=== PATIENT | male | born 1965 | race Caucasian/White ===

== ENCOUNTER 2019-12-03 07:25 | Outpatient (CLI) | payer OTHER, SELFPAY ==
--- NOTE | ~2019-12-03 | MR_ITS ---
EXAMINATION: MR abdomen wo/w con INDICATION: History of neuroendocrine carcinoma TECHNIQUE: Coronal SSFSE ARC, WATER:coronal LAVA-FLEX, Coronal 2D FIESTA FatSat, Axial SSFSE BH ARC, Axial 3D DualEcho BH, Axial SSFSE-IR, Axial DWI b=500, Axial 2D FIESTA FatSat, pre and dynamic postco ntrast Axial LAVA ARC, postcontrast Coronal In and Opposed phase LAVA FLEX COMPARISON: 04/06/1918, 01/16/2019, 05/30/2017 CONTRAST: Multihance, 20 cc FINDINGS: Again seen is a stable, subtle 8 mm lesion in liver segment VIII which is mildly T1 hypoint ense and mildly T2 hyperintense. No definite abnormal enhancement is seen on this examination. No new liver lesion is identified. The spleen, pancreas, and adrenal glands are normal. A stone is present in the nondistended gallbladder. There are no pathologically enlarged abdominal lymph nodes. There is a stable hemorrhagic or proteinaceous cyst of the left mid kidney. The right kidney is unremarkable. There are no dilated loops of bowel. Again noted are changes of right hemicolectomy. IMPRESSION: 1. Changes of right hemicolectomy without evidence of residual or recurrent disease. 2. Stable subtle lesion of the right hepatic lobe, most consistent with a benign finding given interv al stability. 3. Cholelithiasis without evidence of cholecystitis. Reviewed, dictated and finalized at location A. IMPRESSION: 1. Changes of right hemicolectomy without evidence of residual or recurrent dis ease. 2. Stable subtle lesion of the right hepatic lobe, most consistent with a benig n finding given interval stability. 3. Cholelithiasis without evidence of cholecystitis.
[2019-12-03 08:50] LABS: Estimated Glomerular Filt Rate > 60
== END 2019-12-03 07:26 | disposition home or self-care (01) ==
LOC: ANHIMG 07:28
PROVIDERS: PCP Emergency Medicine; Visit Provider Internal Medicine Medical Oncology
DX: C7A.8 Other malignant neuroendocrine tumors (principal); K76.9 Liver disease, unspecified; K80.20 Calculus of gallbladder without cholecystitis without obstruction; Z90.49 Acquired absence of other specified parts of digestive tract
CPT/HCPCS: 36415; 74183; A9577

== ENCOUNTER 2020-04-13 06:56 | Outpatient (CLI) | payer OTHER, SELFPAY ==
[2020-04-13 08:31] LABS: Alanine Aminotransferase 28 U/L (4-50); Albumin Level 4.6 g/dL (3.5-5.1); Alkaline Phosphatase 74 U/L (38-126); Anion Gap 13.2 mmol/L (7-16); Aspartate Amino Transferase 25 U/L (17-59); Bilirubin,Total 0.5 mg/dL (0.2-1.3); Blood Urea Nitrogen 11 mg/dL (9-20); Calcium 9.5 mg/dL (8.4-10.2); Carbon Dioxide 26 mmol/L (22-30); Chloride 103 mmol/L (98-107); Cholesterol 233 mg/dL (0-200); Estimated Glomerular Filt Rate > 60; Glucose 102 mg/dL (75-110); HDL Direct 42 mg/dL; Potassium 4.2 mmol/L (3.4-5.0); Sodium 138 mmol/L (137-145); Triglycerides 172 mg/dL (<150)
[2020-04-13 08:42] LABS: LDL Cholesterol Direct 146 mg/dL
[2020-04-13 14:28] LABS: Hemoglobin A1C 5.6 % (<5.7)
[2020-04-13 14:54] LABS: Prostate Specific Antigen 0.7 ng/mL (< OR = 4.0)
== END 2020-04-13 06:57 | disposition home or self-care (01) ==
PROVIDERS: PCP Emergency Medicine; Visit Provider Emergency Medicine
DX: E78.5 Hyperlipidemia, unspecified (principal); E11.9 Type 2 diabetes mellitus without complications; Z12.5 Encounter for screening for malignant neoplasm of prostate
CPT/HCPCS: 36415; 80053; 80061; 83036; 84153

== ENCOUNTER 2020-10-09 06:44 | Outpatient (CLI) | payer OTHER, SELFPAY ==
[2020-10-09 07:37] LABS: Alanine Aminotransferase 33 U/L (4-50); Albumin Level 4.2 g/dL (3.5-5.1); Alkaline Phosphatase 70 U/L (38-126); Anion Gap 4 mmol/L (8-16); Aspartate Amino Transferase 28 U/L (17-59); Bilirubin,Total 0.6 mg/dL (0.2-1.3); Blood Urea Nitrogen 14 mg/dL (9-20); Calcium 9.2 mg/dL (8.4-10.2); Carbon Dioxide 30 mmol/L (22-30); Chloride 105 mmol/L (98-107); Cholesterol 242 mg/dL (0-200); Estimated Glomerular Filt Rate > 60; Glucose 113 mg/dL (75-110); HDL Direct 40 mg/dL; Potassium 4.1 mmol/L (3.4-5.0); Sodium 139 mmol/L (137-145); Triglycerides 213 mg/dL (<150)
[2020-10-09 07:48] LABS: LDL Cholesterol Direct 159 mg/dL
[2020-10-09 08:00] LABS: Hemoglobin A1C 5.7 % (<5.7)
[2020-10-09 08:05] LABS: Prostate Specific Antigen 0.8 ng/mL (< OR = 4.0)
== END 2020-10-09 06:45 | disposition home or self-care (01) ==
PROVIDERS: PCP Emergency Medicine; Visit Provider Emergency Medicine
DX: E78.5 Hyperlipidemia, unspecified (principal); Z12.5 Encounter for screening for malignant neoplasm of prostate; E11.9 Type 2 diabetes mellitus without complications
CPT/HCPCS: 36415; 80053; 80061; 83036; 84153; G0103

== ENCOUNTER 2020-10-23 07:02 | Outpatient (CLI) | payer OTHER, SELFPAY ==
[2020-10-23 08:36] LABS: Hemoglobin A1C 5.7 % (<5.7)
== END 2020-10-23 07:03 | disposition home or self-care (01) ==
PROVIDERS: PCP Emergency Medicine; Visit Provider Emergency Medicine
DX: E11.9 Type 2 diabetes mellitus without complications (principal)
CPT/HCPCS: 36415; 83036

== ENCOUNTER 2021-02-22 06:45 | Outpatient (CLI) | payer OTHER, SELFPAY ==
[2021-02-22 07:53] LABS: Alanine Aminotransferase 27 U/L (4-50); Albumin Level 4.5 g/dL (3.5-5.1); Alkaline Phosphatase 67 U/L (38-126); Anion Gap 9 mmol/L (8-16); Aspartate Amino Transferase 28 U/L (17-59); Bilirubin,Total 0.7 mg/dL (0.2-1.3); Blood Urea Nitrogen 14 mg/dL (9-20); Calcium 9.6 mg/dL (8.4-10.2); Carbon Dioxide 26 mmol/L (22-30); Chloride 105 mmol/L (98-107); Cholesterol 244 mg/dL (0-200); Estimated Glomerular Filt Rate > 60; Glucose 109 mg/dL (75-110); HDL Direct 39 mg/dL; Potassium 4.1 mmol/L (3.4-5.0); Sodium 140 mmol/L (137-145); Triglycerides 240 mg/dL (<150)
[2021-02-22 08:04] LABS: LDL Cholesterol Direct 123 mg/dL
== END 2021-02-22 06:46 | disposition home or self-care (01) ==
LOC: ANHLAB 06:48
PROVIDERS: PCP Emergency Medicine; Visit Provider Emergency Medicine
DX: E78.5 Hyperlipidemia, unspecified (principal)
CPT/HCPCS: 36415; 80053; 80061

== ENCOUNTER 2021-04-26 12:32 | Outpatient (CLI) | payer OTHER, SELFPAY ==
--- NOTE | ~2021-04-26 | MR_ITS ---
EXAMINATION: MR pelvis wo/w con INDICATION: Neuroendocrine carcinoma TECHNIQUE: Coronal SSFSE ARC, WATER:coronal LAVA-FLEX, Coronal 2D FIESTA FatSat, Axial SSFSE BH ARC, Axial 3D DualEcho BH, Axial SSFSE-IR, Axial DWI b=500, Axial 2D FIESTA FatSat, postcontrast Axial LAV A ARC, postcontrast Coronal In and Opposed phase LAVA FLEX COMPARISON: CT, 07/10/2016 CONTRAST: Multihance, 20 cc FINDINGS: There are changes of right hemicolectomy. There are no pathologically enlarged pelvic lymph nodes. Colonic diverticulosis is present without evidence of diverticulitis. There are no dilated lo ops of bowel. IMPRESSION: 1. No evidence of residual or recurrent disease. Reviewed, dictated and finalized at location D.
--- NOTE | ~2021-04-26 | MR_ITS ---
EXAMINATION: MR abdomen wo/w con INDICATION: Neuroendocrine carcinoma TECHNIQUE: Coronal SSFSE ARC, WATER:coronal LAVA-FLEX, Coronal 2D FIESTA FatSat, Axial SSFSE BH ARC, Axial 3D DualEcho BH, Axial SSFSE-IR, Axial DWI b=500, Axial 2D FIESTA FatSat, pre and dynamic postco ntrast Axial LAVA ARC, postcontrast Coronal In and Opposed phase LAVA FLEX COMPARISON: 12/03/2019, 04/15/2019, 05/30/2017 CONTRAST: Multihance, 20 cc FINDINGS: There is a stable subtle 8 mm mildly T1 hypointense and mildly T2 hyperintense lesion in li lino segment VIII which demonstrates arterial enhancement and is isointense to liver on subsequent pos tcontrast sequences. No new liver lesion is identified. The spleen, pancreas, and adrenal glands are normal. Stones are present in the nondistended gallbladder. There is an 8 mm cyst in the right kidney upper pole. There is a stable 2.1 cm mass in the left kidney, consistent with a hemorrhagic or prote inaceous cyst. Changes of right hemicolectomy are noted. There are stable small soft tissue densities near the surgical anastomosis. No pathologically enlarged abdominal lymph nodes are identified. Ther e are no dilated loops of bowel. IMPRESSION: 1. Changes of right hemicolectomy without evidence of residual or recurrent disease. 2. Stable subtle lesion of the right hepatic lobe, most consistent with a benign finding. 3. Cholelithiasis without evidence of cholecystitis. Reviewed, dictated and finalized at location D. IMPRESSION: 1. Changes of right hemicolectomy without evidence of residual or recurrent dis ease. 2. Stable subtle lesion of the right hepatic lobe, most consistent with a benig n finding. 3. Cholelithiasis without evidence of cholecystitis.
[2021-04-26 14:11] LABS: Estimated Glomerular Filt Rate > 60
== END 2021-04-26 12:33 | disposition home or self-care (01) ==
PROVIDERS: PCP Emergency Medicine; Visit Provider Internal Medicine Medical Oncology
DX: C7A.8 Other malignant neuroendocrine tumors (principal); Z90.49 Acquired absence of other specified parts of digestive tract; K76.9 Liver disease, unspecified; K80.20 Calculus of gallbladder without cholecystitis without obstruction
CPT/HCPCS: 72197; 74183; A9577

== ENCOUNTER 2021-04-28 10:39 | Emergency (ER) | payer OTHER, SELFPAY ==
[2021-04-28 11:00] VITALS: BP 147/83; PULSE 67; RESP 16; TEMP 36.2; O2SAT 100
--- NOTE | 2021-04-28 11:13 | ED.GENADULT ---
HPI - General Adult General Chief complaint: Extremity Problem,Nontraumatic Stated complaint: Rt forearm swelling Time Seen by Provider: 04/28/21 10:59 Source: patient and RN notes reviewed Mode of arrival: ambulatory Limitations: no limitations History of Present Illness HPI narrative: 56-year-old male presents with complaints of pain, swelling, and redness to the right forearm for 1 day. ?Price reports having an intravenous catheter inserted for a MRI on MondayApril 26 has no memory of any problems and on Monday morning awakened with redness, swelling, and pain, reports redness has spread throughout forearm during the night. ?Warm compresses, elevation, Epsom salt soaks, and Ibuprofen with some relief. No radiation of pain. ?Exacerbation factor consists of movement of the wrist. ?The relieving factor is immobility. ?Dominant hand is the RT hand. ?Denies fever or chills. ?Denies nausea, vomiting, and abdominal pain. ?Tolerating po intake well. ?The patient reports he has not been diagnosed with COVID-19. ?The patient reports he is not waiting for the results of a COVID-19 lab test. ?The patient reports he does not have weakness, fatigue, or myalgia. The patient reports he does not have a new or worsening cough or shortness of breath. ?The patient reports he does not have any rhinorrhea, congestion, loss of taste, sore throat, and diarrhea. Denies recent traveling. Denies concerns for COVID-19 or exposures. ?At this time, the patient is not suspected of having COVID-19. Some parts of this dictation were generated by voice recognition software and may contain typographical and/or grammatical inaccuracies. Related Data Home Medications Medication Instructions Recorded Confirmed Lactobacillus rhamnosus GG 10 1 cap PO DAILY 11/18/19 04/28/21 billion cell capsule krill 1,000 mg-omega-3 230 mg-dha 1 cap PO DAILY 11/18/19 04/28/21 60 ez-pun-ejtlrwvta-astaxan capsule multivitamin 1 tablet PO .COMPLEX 11/18/19 04/28/21 Allergies Allergy/AdvReac Type Severity Reaction Status Date / Time No Known Allergies Allergy Verified 04/28/21 11:25 Review of Systems Review of Systems: CONSTITUTIONAL: Denies fever, chills, sweats. EYES: Denies visual changes, redness, discharge. ENT: Denies rhinorrhea, congestion, sore throat, otalgia. CARDIOVASCULAR: Denies chest pain, palpitations, edema. RESPIRATORY: Denies dyspnea, wheezing, cough. GASTROINTESTINAL: Denies abdominal pain, nausea, vomiting, diarrhea. SKIN: Denies rash or itching. MUSCULOSKELETAL: Denies acute back pain or myalgia. Complains of pain, swelling, and redness to the right forearm. Denies drainage, open area. NEUROLOGIC: Denies numbness or focal weakness. PSYCHIATRIC: Denies anxiety or depression. All other systems reviewed & are unremarkable except as noted in HPI and below. [facility] Past Medical History Medical History (Updated 04/29/21 @ 00:03 by Paulina Fisher) Ex-smoker for more than 1 year HLD (hyperlipidemia) Hyperglycemia Neuroendocrine cancer Screening PSA (prostate specific antigen) Surgical History Surgical History (Updated 04/28/21 @ 15:59 by LEONID Harding) History of bowel resection removed 2 feet History of vasectomy Family History Family History (Updated 04/28/21 @ 16:00 by LEONID Harding) Father Diabetes mellitus Patient's father is in good health Mother , 1971 related to complications of hysterectomy per Price Unknown family medical history Social History Social History (Updated 04/28/21 @ 16:02 by LEONID Harding) Social History: Patient drinks 2 sodas daily, and exercises 4 times per week. Smoking packs per day: 1 Smoking cigarettes per day: 20.0 Smoking status: Current every day smoker Smokeless tobacco user: chewing tobacco Second hand tobacco smoke exposure: No Smoking end date: 09/18/91 Alcohol intake: never Substance use: never Substance use type: does not use
== END 2021-04-28 11:37 | disposition home or self-care (01) ==
PROVIDERS: Emergency Provider Nurse Practitioner Family; PCP Emergency Medicine
DX: T80.1XXA Vascular complications following infusion, transfusion and therapeutic injection, initial encounter (principal); Z87.891 Personal history of nicotine dependence; E78.5 Hyperlipidemia, unspecified
CPT/HCPCS: 99213; G0463

== ENCOUNTER 2021-07-19 06:43 | Outpatient (CLI) | payer OTHER, SELFPAY ==
[2021-07-19 08:17] LABS: Alanine Aminotransferase 23 U/L (4-50); Albumin Level 4.4 g/dL (3.5-5.1); Alkaline Phosphatase 57 U/L (38-126); Anion Gap 8 mmol/L (8-16); Aspartate Amino Transferase 25 U/L (17-59); Bilirubin,Total 0.4 mg/dL (0.2-1.3); Blood Urea Nitrogen 15 mg/dL (9-20); Calcium 8.9 mg/dL (8.4-10.2); Carbon Dioxide 27 mmol/L (22-30); Chloride 104 mmol/L (98-107); Cholesterol 218 mg/dL (0-200); Estimated Glomerular Filt Rate > 60; Glucose 107 mg/dL (65-110); HDL Direct 39 mg/dL; Potassium 3.9 mmol/L (3.4-5.0); Sodium 139 mmol/L (137-145); Triglycerides 204 mg/dL (<150)
[2021-07-19 08:28] LABS: LDL Cholesterol Direct 137 mg/dL
== END 2021-07-19 06:44 | disposition home or self-care (01) ==
LOC: ANHLAB 06:45
PROVIDERS: PCP Emergency Medicine; Visit Provider Emergency Medicine
DX: E78.2 Mixed hyperlipidemia (principal)
CPT/HCPCS: 36415; 80053; 80061

== ENCOUNTER 2022-01-18 06:50 | Outpatient (CLI) | payer OTHER, SELFPAY ==
[2022-01-18 07:33] LABS: Alanine Aminotransferase 22 U/L (4-50); Albumin Level 4.5 g/dL (3.5-5.1); Alkaline Phosphatase 65 U/L (38-126); Anion Gap 8 mmol/L (8-16); Aspartate Amino Transferase 25 U/L (17-59); Bilirubin,Total 0.7 mg/dL (0.2-1.3); Blood Urea Nitrogen 13 mg/dL (9-20); Calcium 8.9 mg/dL (8.4-10.2); Carbon Dioxide 26 mmol/L (22-30); Chloride 103 mmol/L (98-107); Cholesterol 248 mg/dL (0-200); Estimated Glomerular Filt Rate > 60; Glucose 127 mg/dL (65-110); HDL Direct 40 mg/dL; Potassium 3.7 mmol/L (3.4-5.0); Sodium 137 mmol/L (137-145); Triglycerides 149 mg/dL (<150)
[2022-01-18 07:44] LABS: LDL Cholesterol Direct 157 mg/dL
[2022-01-18 08:03] LABS: Prostate Specific Antigen 0.6 ng/mL (< OR = 4.0)
== END 2022-01-18 06:51 | disposition home or self-care (01) ==
LOC: ANHLAB 06:51
PROVIDERS: PCP Emergency Medicine; Visit Provider Emergency Medicine
DX: E78.2 Mixed hyperlipidemia (principal); Z12.5 Encounter for screening for malignant neoplasm of prostate
CPT/HCPCS: 36415; 80053; 80061; 84153; G0103

== ENCOUNTER 2022-02-09 06:55 | Outpatient (CLI) | payer OTHER, SELFPAY ==
[2022-02-09 08:08] LABS: Hemoglobin A1C 5.7 % (<5.7)
== END 2022-02-09 06:56 | disposition home or self-care (01) ==
LOC: ANHLAB 06:57
PROVIDERS: PCP Emergency Medicine; Visit Provider Emergency Medicine
DX: R73.9 Hyperglycemia, unspecified (principal)
CPT/HCPCS: 36415; 83036

== ENCOUNTER 2022-05-02 06:39 | Outpatient (CLI) | payer OTHER, SELFPAY ==
[2022-05-02 07:27] LABS: Basophils Percent Auto 0.8 % (0.2-1.2); Eosinophils Absolute Auto 0.2 K/mm3 (0-0.3); Eosinophils Percent Auto 3.4 % (0-4.4); Hematocrit 42.4 % (42.0-52.0); Hemoglobin 14.6 g/dL (14.0-18.0); Immature Granulocyte Absolute 0.01 K/mm3 (0.00-0.031); Immature Granulocyte Percent A 0.2 % (0-0.5); Lymphocytes Percent Auto 43.2 % (18.3-44.2); Mean Corpuscular HGB Conc 34.4 g/dl (32-36); Mean Corpuscular Hemoglobin 31.9 pg (26-34); Mean Corpuscular Volume 92.8 fl (80-100); Mean Platelet Volume 9.6 fl (7.4-10.4); Monocytes Absolute Auto 0.5 K/mm3 (0.1-0.6); Monocytes Percent Auto 8.8 % (2.6-8.5); Neutrophils Absolute Auto 2.3 K/mm3 (1.3-6.7); Neutrophils Percent Auto 43.6 % (45.5-73.1); Platelet Count Result 285 k/mm3 (150-375); Red Blood Count 4.57 M/mm3 (4.6-6.20); Red Cell Distribution Width 13.8 % (11.5-14.5); White Blood Count 5.3 K/mm3 (4.5-10.0)
[2022-05-02 07:54] LABS: Alanine Aminotransferase 21 U/L (6-50); Albumin Level 4.4 g/dL (3.5-5.1); Alkaline Phosphatase 63 U/L (38-126); Anion Gap 11 mmol/L (8-16); Aspartate Amino Transferase 22 U/L (17-59); Bilirubin,Total 0.4 mg/dL (0.2-1.3); Blood Urea Nitrogen 11 mg/dL (9-20); Calcium 9.3 mg/dL (8.4-10.2); Carbon Dioxide 23 mmol/L (22-30); Chloride 104 mmol/L (98-107); Estimated Glomerular Filt Rate > 60; Glucose 112 mg/dL (65-110); Potassium 3.9 mmol/L (3.4-5.0); Sodium 138 mmol/L (137-145)
== END 2022-05-02 06:40 | disposition home or self-care (01) ==
LOC: ANHLAB 06:40
PROVIDERS: PCP Emergency Medicine; Visit Provider Internal Medicine Medical Oncology
DX: C7A.8 Other malignant neuroendocrine tumors (principal)
CPT/HCPCS: 36415; 80053; 85025; 86316

== ENCOUNTER 2022-05-03 06:32 | Outpatient (CLI) | payer OTHER, SELFPAY ==
--- NOTE | ~2022-05-03 | MR_ITS ---
EXAMINATION: MR pelvis wo/w con INDICATION: Neuroendocrine carcinoma TECHNIQUE: Coronal SSFSE ARC, WATER:coronal LAVA-FLEX, Coronal 2D FIESTA FatSat, Axial SSFSE BH ARC, Axial 3D DualEcho BH, Axial SSFSE-IR, Axial DWI b=500, Axial 2D FIESTA FatSat, postcontrast Axial LAV A ARC, WATER:coronal LAVA FLEX COMPARISON: 04/26/2021 CONTRAST: Multihance, 20 cc FINDINGS: Changes of right hemicolectomy are again noted. There are no dilated loops of bowel. No pat hologically enlarged pelvic lymph nodes are identified. Liver lesions are described on abdomen MRI. A stone is present in the nondistended gallbladder. There is hemorrhagic cyst of the left kidney. A si mple cyst is noted in the right kidney upper pole. There are no dilated loops of bowel. No abnormal p elvic enhancement is present after contrast administration. IMPRESSION: 1. Unremarkable MRI pelvis. Reviewed, dictated and finalized at location A. IMPRESSION: 1. Unremarkable MRI pelvis.
--- NOTE | ~2022-05-03 | MR_ITS ---
EXAMINATION: MR abdomen wo/w con INDICATION: Neuroendocrine tumor TECHNIQUE: Coronal SSFSE ARC, WATER:coronal LAVA-FLEX, Coronal 2D FIESTA FatSat, Axial SSFSE BH ARC, Axial 3D DualEcho BH, Axial SSFSE-IR, Axial DWI b=500, Axial 2D FIESTA FatSat, pre and dynamic postco ntrast Axial LAVA ARC, postcontrast Coronal In and Opposed phase LAVA FLEX COMPARISON: 04/26/2021, 12/03/2019, 04/15/2019 CONTRAST: Multihance, 20 cc FINDINGS: Again seen is a subtle, stable 8 mm lesion in liver segment VIII which is mildly T1 hypoint ense and mildly T2 hyperintense. There is enhancement in the arterial phase and the lesion is isointe nse to liver on subsequent postcontrast sequences. On the diffusion weighted images, there are at rich[address] st five additional smaller lesions with increased signal intensity, better visualized on the current examination when compared to priors. A 5 mm subcapsular lesion in liver segment VIII demonstrates sig nal characteristics similar to the larger lesion but appears to washout on delayed postcontrast image s. A 5 mm subcapsular lesion in liver segment also appears to washout on delayed postcontrast imag es. There is loss of hepatic parenchymal signal on opposed phase imaging, consistent with hepatic eufemia atosis. A stone is present in the nondistended gallbladder. There is a 2.3 cm hemorrhagic cyst of the left kidney. Changes of right hemicolectomy are noted. The spleen, pancreas, and adrenal glands are normal. There is an 8 mm cyst in the right kidney upper pole. No pathologically enlarged abdominal ly mph nodes are identified. There are no dilated loops of bowel. IMPRESSION: 1. Liver lesions as described above, better appreciated on current examination, some with mild enlarg ement and washout when compared to priors. Signal characteristics on the current examination are most consistent with small liver metastases. 2. Cholelithiasis without evidence of cholecystitis. Reviewed, dictated and finalized at location A. IMPRESSION: 1. Liver lesions as described above, better appreciated on current examination, some with mild enlargement and washout when compared to priors. Signal charact eristics on the current examination are most consistent with small liver metast ases. 2. Cholelithiasis without evidence of cholecystitis.
== END 2022-05-03 06:33 | disposition home or self-care (01) ==
LOC: ANHIMG 06:36
PROVIDERS: PCP Emergency Medicine; Visit Provider Internal Medicine Medical Oncology
DX: C7A.8 Other malignant neuroendocrine tumors (principal); K76.9 Liver disease, unspecified; K80.20 Calculus of gallbladder without cholecystitis without obstruction
CPT/HCPCS: 72197; 74183; A9577

== ENCOUNTER 2022-08-10 06:35 | Outpatient (CLI) | payer OTHER, SELFPAY ==
[2022-08-10 07:14] LABS: Alanine Aminotransferase 27 U/L (6-50); Albumin Level 4.4 g/dL (3.5-5.1); Alkaline Phosphatase 73 U/L (38-126); Anion Gap 8 mmol/L (8-16); Aspartate Amino Transferase 28 U/L (17-59); Bilirubin,Total 0.6 mg/dL (0.2-1.3); Blood Urea Nitrogen 11 mg/dL (9-20); Carbon Dioxide 27 mmol/L (22-30); Chloride 104 mmol/L (98-107); Cholesterol 181 mg/dL (0-200); Estimated Glomerular Filt Rate > 60; Glucose 102 mg/dL (65-110); HDL Direct 35 mg/dL; Potassium 3.9 mmol/L (3.4-5.0); Sodium 139 mmol/L (137-145); Triglycerides 137 mg/dL (<150)
[2022-08-10 07:25] LABS: LDL Cholesterol Direct 104 mg/dL
== END 2022-08-10 06:36 | disposition home or self-care (01) ==
LOC: ANHLAB 06:36
PROVIDERS: PCP Emergency Medicine; Visit Provider Emergency Medicine
DX: E78.2 Mixed hyperlipidemia (principal)
CPT/HCPCS: 36415; 80053; 80061

== ENCOUNTER 2023-03-07 06:46 | Outpatient (CLI) | payer OTHER, SELFPAY ==
[2023-03-07 07:56] LABS: Alanine Aminotransferase 23 U/L (6-50); Albumin Level 4.4 g/dL (3.5-5.1); Alkaline Phosphatase 66 U/L (38-126); Anion Gap 10 mmol/L (8-16); Aspartate Amino Transferase 23 U/L (17-59); Bilirubin,Total 0.6 mg/dL (0.2-1.3); Blood Urea Nitrogen 14 mg/dL (9-20); Calcium 8.9 mg/dL (8.4-10.2); Carbon Dioxide 27 mmol/L (22-30); Chloride 103 mmol/L (98-107); Estimated Glomerular Filt Rate > 60; Glucose 89 mg/dL (65-110); Potassium 3.7 mmol/L (3.4-5.0); Sodium 140 mmol/L (137-145)
[2023-03-11 17:14] LABS: Vitamin D 1,25 (OH)2 Total 50 pg/mL (18-72); Vitamin D2 1,25 (OH)2 <8 pg/mL; Vitamin D3 1,25 (OH)2 50 pg/mL
== END 2023-03-07 06:47 | disposition home or self-care (01) ==
LOC: ANHLAB 06:48
PROVIDERS: PCP Emergency Medicine; Visit Provider Emergency Medicine
DX: R53.83 Other fatigue (principal); E78.5 Hyperlipidemia, unspecified
CPT/HCPCS: 36415; 80053; 82652

== ENCOUNTER 2023-05-25 06:50 | Outpatient (CLI) | payer OTHER, SELFPAY ==
[2023-05-25 08:40] LABS: Basophils Percent Auto 0.6 % (0.2-1.2); Eosinophils Absolute Auto 0.2 K/mm3 (0-0.3); Eosinophils Percent Auto 2.6 % (0-4.4); Hematocrit 42.6 % (42.0-52.0); Hemoglobin 14.2 g/dL (14.0-18.0); Immature Granulocyte Absolute 0.02 K/mm3 (0.00-0.031); Immature Granulocyte Percent A 0.3 % (0-0.5); Lymphocytes Absolute Auto 2.49 K/mm3 (0.9-3.2); Lymphocytes Percent Auto 40.2 % (18.3-44.2); Mean Corpuscular HGB Conc 33.3 g/dl (32-36); Mean Corpuscular Hemoglobin 31.7 pg (26-34); Mean Corpuscular Volume 95.1 fl (80-100); Mean Platelet Volume 9.8 fl (7.4-10.4); Monocytes Absolute Auto 0.5 K/mm3 (0.1-0.6); Monocytes Percent Auto 8.2 % (2.6-8.5); Neutrophils Percent Auto 48.1 % (45.5-73.1); Platelet Count Result 272 k/mm3 (150-375); Red Blood Count 4.48 M/mm3 (4.6-6.20); Red Cell Distribution Width 13.3 % (11.5-14.5); White Blood Count 6.2 K/mm3 (4.5-10.0)
[2023-05-25 08:54] LABS: Alanine Aminotransferase 25 U/L (6-50); Albumin Level 4.3 g/dL (3.5-5.1); Alkaline Phosphatase 59 U/L (38-126); Anion Gap 10 mmol/L (8-16); Aspartate Amino Transferase 26 U/L (17-59); Bilirubin,Total 0.5 mg/dL (0.2-1.3); Blood Urea Nitrogen 17 mg/dL (9-20); Calcium 8.9 mg/dL (8.4-10.2); Carbon Dioxide 27 mmol/L (22-30); Chloride 104 mmol/L (98-107); Estimated Glomerular Filt Rate > 60; Glucose 91 mg/dL (65-110); Potassium 3.8 mmol/L (3.4-5.0); Sodium 141 mmol/L (137-145)
[2023-05-25 09:23] LABS: Prostate Specific Antigen 0.7 ng/mL (< OR = 4.0)
== END 2023-05-25 06:51 | disposition home or self-care (01) ==
PROVIDERS: PCP Emergency Medicine; Referring Provider Internal Medicine Medical Oncology; Visit Provider Emergency Medicine
DX: C7A.8 Other malignant neuroendocrine tumors (principal); Z12.5 Encounter for screening for malignant neoplasm of prostate
CPT/HCPCS: 36415; 80053; 84153; 85025; 86316; G0103

== ENCOUNTER 2023-06-07 09:20 | Outpatient (CLI) | payer OTHER, SELFPAY ==
--- NOTE | ~2023-06-07 | MR_ITS ---
EXAMINATION: MR abdomen wo/w con, MR pelvis wo/w con INDICATION: Neuroendocrine carcinoma TECHNIQUE: Coronal SSFSE ARC, WATER:coronal LAVA-FLEX, Coronal 2D FIESTA FatSat, Axial SSFSE BH ARC, Axial 3D DualEcho BH, Axial SSFSE-IR, Axial DWI b=500, Axial 2D FIESTA FatSat, pre and dynamic postco ntrast Axial LAVA ARC, postcontrast Coronal In and Opposed phase LAVA FLEX COMPARISON: 05/03/2022 CONTRAST: Multihance, 20 cc FINDINGS: Abdomen MRI: There is a stable 8 mm lesion of liver segment VIII which is mildly T1 hypointense and m ildly T2 hyperintense with enhancement in the arterial phase. The lesion remains isointense to liver on subsequent postcontrast sequences. As on the previous examination, there are at least five additio nal smaller lesions which are best visualized on the diffusion-weighted and precontrast T1-weighted s equences. These are also stable in size and are seen in liver segments , VII, and VIII. No new live r lesion is identified. There are changes of right hemicolectomy. The spleen, pancreas, and adrenal g lands are normal. A stone is present in the nondistended gallbladder. The right kidney is unremarkabl e. There is a 2.3 cm hemorrhagic cyst of the left kidney. No pathologically enlarged abdominal lymph nodes are identified. Pelvis MRI: No abnormal enhancement is present after contrast administration. There are no pathologic ally enlarged pelvic lymph nodes. IMPRESSION: 1. Stable liver masses, consistent with metastatic disease. No new liver mass identified. 2. Unremarkable pelvic MRI. 3. Cholelithiasis without evidence of cholecystitis. Reviewed, dictated and finalized at location B. IMPRESSION: 1. Stable liver masses, consistent with metastatic disease. No new liver mass i dentified. 2. Unremarkable pelvic MRI. 3. Cholelithiasis without evidence of cholecystitis.
== END 2023-06-07 09:21 | disposition home or self-care (01) ==
PROVIDERS: PCP Emergency Medicine; Visit Provider Internal Medicine Medical Oncology
DX: C7A.8 Other malignant neuroendocrine tumors (principal); K80.20 Calculus of gallbladder without cholecystitis without obstruction
CPT/HCPCS: 72197; 74183; A9577

== ENCOUNTER 2024-03-19 06:55 | Outpatient (CLI) | payer OTHER, SELFPAY ==
[2024-03-19 07:38] LABS: Alanine Aminotransferase 22 U/L (6-50); Albumin Level 4.5 g/dL (3.5-5.1); Alkaline Phosphatase 63 U/L (38-126); Anion Gap 7 mmol/L (4-12); Aspartate Amino Transferase 24 U/L (17-59); Bilirubin,Total 0.9 mg/dL (0.2-1.3); Blood Urea Nitrogen 13 mg/dL (9-20); Carbon Dioxide 26 mmol/L (22-30); Chloride 107 mmol/L (98-107); Cholesterol 193 mg/dL (0-200); Estimated Glomerular Filt Rate > 60; Glucose 101 mg/dL (65-110); HDL Direct 38 mg/dL; Potassium 3.7 mmol/L (3.4-5.0); Sodium 140 mmol/L (137-145); Triglycerides 200 mg/dL (<150)
[2024-03-19 07:49] LABS: LDL Cholesterol Direct 122 mg/dL
[2024-03-19 09:02] LABS: Vitamin D 25 Hydroxy 38.5 ng/mL
== END 2024-03-19 06:56 | disposition home or self-care (01) ==
LOC: ANHLAB 06:56
PROVIDERS: PCP Emergency Medicine; Visit Provider Emergency Medicine
DX: E78.5 Hyperlipidemia, unspecified (principal); E55.9 Vitamin D deficiency, unspecified
CPT/HCPCS: 36415; 80053; 80061; 82306

== ENCOUNTER 2024-07-01 13:20 | Outpatient (CLI) | payer OTHER, SELFPAY ==
--- NOTE | ~2024-07-01 | MR_ITS ---
EXAMINATION: MR abdomen wo/w con, MR pelvis wo/w con DATE: 07/01/2024 14:43 INDICATION: Restaging neuroendocrine carcinoma TECHNIQUE: Abdomen: Magnetic resonance imaging (MRI) of the abdomen was performed without and with 20 mL Multihance intra venous contrast. Sequences included coronal T2-weighted SS-FSE, coronal and axial FS 2D-FIESTA, axia l STIR FSE, axial T2-weighted SS-FSE, axial T2-weighted FS SS-FSE, axial diffusion-weighted SE, axial dual-echo T1-weighted FSPGR, and axial and coronal T1-weighted LAVA. Postcontrast axial T1-weighted LAVA images were obtained in a time course. Postcontrast coronal T1-weighted LAVA images were obtaine d. Pelvis: MRI of the pelvis was performed without and with the identical 20 mL MultiHance intravenous contrast bolus. Sequences included coronal and axial T2-weighted SS-FSE and FS 2D-FIESTA, axial STIR FSE, axi al T2-weighted FS SS-FSE, axial diffusion-weighted SE, axial dual-echo T1-weighted FSPGR, and axial a nd coronal T1-weighted LAVA. Postcontrast axial and coronal T1-weighted LAVA images were obtained. COMPARISON: 06/07/2023 FINDINGS: Abdomen: Heart size is normal. No pericardial or pleural effusion. Large gallstone within the otherwise normal -appearing gallbladder. Spleen, pancreas, bilateral adrenal glands and right kidney are normal. Nonen hancing 2.3 cm hemorrhagic/proteinaceous cyst in the left kidney with layering fluid fluid level. No interval change in 6 T1 hypointense, T2 hyperintense arterially enhancing lesions on the right hepati c lobe, a few of the larger with washout on the five-minute delayed imaging. These are best appreciat ed on the diffusion-weighted imaging. The largest measures 11 mm in segment 8 of the liver on the pre contrast T1-weighted images which is negligibly larger than the 10 mm corresponding measurement on prior imaging. Remaining lesions also appear similar without significant interval change. No new le sions identified. Postoperative change of prior proximal right hemicolectomy. There are multiple diverticula along the descending and sigmoid colon. No pathologically enlarged abdominal lymphadenopathy. No abnormally enh ancing bone lesions or other pathologic marrow replacing process. Pelvis: Bladder is normal. Prostatomegaly. 11 mm T2 hyperintense nonenhancing cyst versus urethral diverticul um slightly to the right of midline in the central prostate. No abnormal masses or pathologically enl arged pelvic or inguinal lymphadenopathy. No abnormally enhancing lesions or other pathologic marrow replacing process.. IMPRESSION: 1. Again seen are 6 small arterially enhancing hepatic lesions consistent with metastatic disease wit h negligible increase in size of the largest lesion which measures 11 mm compared with 10 mm on the p rior study. Remaining lesions are without definitive interval change. No new hepatic lesions or other metastatic disease identified. 2. Cholelithiasis. 3. Diverticulosis. 4. Prostatomegaly with 11 mm T2 hyperintense nonenhancing cyst versus urethral diverticulum within th e central prostate. Reviewed, dictated and finalized at location A. IMPRESSION: 1. Again seen are 6 small arterially enhancing hepatic lesions consistent with metastatic disease with negligible increase in size of the largest lesion which measures 11 mm compared with 10 mm on the prior study. Remaining lesions are w ithout definitive interval change. No new hepatic lesions or other metastatic d isease identified. 2. Cholelithiasis. 3. Diverticulosis. 4. Prostatomegaly with 11 mm T2 hyperintense nonenhancing cyst versus urethral diverticulum within the central prostate.
== END 2024-07-01 13:21 | disposition home or self-care (01) ==
PROVIDERS: PCP Emergency Medicine
DX: C7A.8 Other malignant neuroendocrine tumors (principal); K80.20 Calculus of gallbladder without cholecystitis without obstruction; K57.90 Diverticulosis of intestine, part unspecified, without perforation or abscess without bleeding; N40.0 Benign prostatic hyperplasia without lower urinary tract symptoms
CPT/HCPCS: 72197; 74183; A9577

== ENCOUNTER 2024-10-08 07:08 | Outpatient (CLI) | payer OTHER, SELFPAY ==
[2024-10-08 07:48] LABS: Alanine Aminotransferase 22 U/L (6-50); Albumin Level 4.4 g/dL (3.5-5.1); Alkaline Phosphatase 68 U/L (38-126); Anion Gap 9 mmol/L (4-12); Aspartate Amino Transferase 25 U/L (17-59); Bilirubin,Total 0.8 mg/dL (0.2-1.3); Blood Urea Nitrogen 13 mg/dL (9-20); Calcium 9.3 mg/dL (8.4-10.2); Carbon Dioxide 28 mmol/L (22-30); Chloride 103 mmol/L (98-107); Cholesterol 191 mg/dL (0-200); Estimated Glomerular Filt Rate > 60; Glucose 103 mg/dL (65-110); HDL Direct 39 mg/dL; Potassium 3.8 mmol/L (3.4-5.0); Sodium 140 mmol/L (137-145); Triglycerides 162 mg/dL (<150)
[2024-10-08 07:59] LABS: LDL Cholesterol Direct 117 mg/dL
[2024-10-08 09:04] LABS: Vitamin D 25 Hydroxy 36.7 ng/mL
--- OUTSIDE RECORDS SUMMARY | 2024-10-10 15:31 | XMS_ITS | Clinical Summary ---
Author Organization [facility] Address [address] [place] [address] Care Team Providers Care Meter Record Clerk Name Role Phone Shahram Marquez MD Primary Care Provide r OppeltSergio MD Unavailable [phone] Allergies No known active allergies Medications multivit with minerals/lute in (MULTIVITAMIN 50 PLUS ORAL) 06/20/2017Centrum, po solid .[id number] Tablet, chewablePOdailyCurrent Medication 017 Active fluticasone propionate (FLONASE) 50 mcg/actuation nasal spray 06/20/2017Flonase allergy relief, top 50 mcg Pollard, suspension (ml)Topicalas directedCurrent Medication 017 Active omega-3/dha/e pa/dpa/fish oil (OMEGA-3 2100 ORAL) 06/20/2017Megared omega-3 krill oil, po solid 1000-230mg CapsulePOdailyCurrent Medication 017 Active Lactobac no.41/Bifidob act no.7 (PROBIOTIC-10 ORAL) 06/20/2017Probiotic, po solid 5b cell Capsule, sprinklePOdailyCurrent Medication 017 Active red yeast rice 600 mg capsule 022 Active multivitamin- iron-folic acid (Daily Vitamin Formula-Iron) 18-400 mg-mcg tablet Take 1 tablet by mouth daily 017 Active Active Problems Problem Noted Date Diagnosed Date 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 Encounters Date Type Department Care Team Description 07/15/2024 8:22 PM CDT - 07/15/2024 11:59 PM CDT Hospital Encounter [facility] ([facility]) [address] [place] [id number] Discharge Disposition: Discharge to home or self care 07/15/2024 3:00 PM CDT Office Visit [facility] [address] [place] [id number] Sergio Bains MD Neuroendocrine carcinoma (HCC) (Primary Dx) 07/15/2024 2:00 PM CDT Lab [facility] [address] [place] [address] Neuroendocrine carcinoma (HCC) from Last 3 Months Immunizations Name Administration Dates Next Due Influenza, Unspecified 06/20/2017,2016,09/20/2016,2015 Moderna SARS-CoV-2 Monovalen t Vaccination (12+ YRS) 10/31/2021 Tdap 08/15/2017 ZOSTER LIVE 06/20/2017, 7,09/20/2016,2015 Surgical History Surgery Date Site/Laterality Comments COLONOSCOPY APPENDECTOMY 09/18/1983 - 09/17/1984 VASECTOMY 09/18/1988 - 09/17/1989 COLON SURGERY 09/18/2015 - 09/17/2016 Medical History Medical History Date Comments Neuroendocrine carcinoma (HCC) Family History Relation Name Status Comments Brother 1 Brandon Alive Brother 2 Canelo Alive Father Alive Maternal Grandfather Maternal Grandmother Mother Paternal Grandfather Paternal Grandmother Social History Tobacco Use Types Packs/Day Years Used Date Smoking Tobacco: Former Cigarettes 1 10 Pipe Cigars Smokeless Tobacco: Current Snuff Tobacco Cessation:Counseling Given: No AUDIT-C Answer Date Recorded Frequency of Alcohol Consumption Not on file 07/15/2024 Q2: How many drinks containi ng alcohol do you have on a typical day when you are drinking? Patient does not drink Frequency of Binge Drinking Not on file 06/19 Personal Safety Answer Date Recorded Getting School Help Needed Not on file 12/02 Sex and Gender Information Value Date Recorded Sex Assigned at Not on file Legal Sex Male 11:34 AM [employer] Gender Identity Male 11/04/2019 1:12 PM [employer] Sexual Orientation Straight 11/04/2019 1: 12 PM [employer] Obstetrics History Last Filed Vital Signs Vital Sign Reading Time Taken Comments Blood Pressure 170/85 07/15/2024 2:38 PM CDT Pulse 70 07/15/2024 2:38 PM CDT Temperature 36.8 ??C (98.3 ??F) 07/15/2024 2:38 PM CD T Respiratory Rate 16 07/15/2024 2:38 PM CDT Oxygen Saturation 100% 07/15/2024 2:38 PM CDT Inhaled Oxygen Concentration - - Weight 107.2 kg (236 lb 6.4 oz) 07/15/2024 2:38 PM CDT Height 172.7 cm (5' 8 ) 07/15/2024 2:38 PM CDT Body Mass Index 35.94 07/15/2024 2:38 PM CDT Plan of Treatment Health Maintenance Due Date Last Done Comments Colon Cancer Screening-Colonoscopy 1965 Depression Screening 1965 Hepatitis C Screening 1965 Prostate Cancer Screening-PSA 1965 Hepatitis B Screening 1983 Regular Well Visit/Exam 18-64 1983 Zoster Vaccine (2 of 3) 08/15/2017 06/20/20 17, 12/13/2016, 09/20/2016, Additional history exists Covid-19 Vaccine ( season) 2024 10/31/2021, 05/31/2021, 05/03/2021 Influenza Vaccine (#1) 2024 7, 12/13/2016, 09/20/2016, Additional history exists DTaP/Tdap/Td Vaccine (2 - Td or Tdap) 08/15/2027 08/15/2017 Pneumococcal vaccine <65 Aged Out No longer eligible based on patient's age to complete this topic Procedures Procedure Name Priority Date/Time Associated Diagnosis Comments MR BODY OUTSIDE REFERENCE Routine 07/15/2024 8:22 PM CDT EGFR Routine 07/15/2024 2:16 PM CDT Neuroendocrine carcinoma (HCC) DIFFERENTIAL AUTO Routine 07/15/2024 2:1 6 PM CDT Neuroendocrine carcinoma (HCC) CBC WITH AUTO DIFFERENTIAL Routine 07/15/2024 2:16 PM CDT Neuroendocrine carcinoma (HCC) CHROMOGRANIN A Routine 07/15/2024 2:16 PM CDT Neuroendocrine carcinoma (HCC) COMPREHENSIVE METABOLIC PANEL Routine 07/15/2024 2:16 PM CDT Neuroendocrine carcinoma (HCC) from Last 3 Months Results * MR Body Outside Reference (07/15/2024 8:22 PM CDT) Impressions RAD_PACS_[facility] - 07/15/2024 8:22 PM CDT These images are for Reference purposes only and have not been reviewed by [facility]. ??There will be no report generated by a [facility] Radiologist. Narrative RAD_PACS_[facility] - 07/15/2024 8:22 PM CDT EXAMINATION: ??Images For Reference Purposes Only us Sergio Bains MD IMG MRI PROCEDURES Final Re sult RAD_PACS_[facility] * eGFR (07/15/2024 2:16 PM CDT) eGFR >90 >=60 mL/min/1. 73 m2 Comment: Interpretive Data Reference Interval Normal ?>/= 90 mL/min/1.73m2 Mildly decreased* ? 60 - 89 mL/min/1.73m2 Mildly to moderately decreased ?45 - 59 mL/min/1.73m2 Moderately to severely decreased ??30 - 44 mL/min/1.73m2 Severely decreased ?15 - 29 mL/min/1.73m2 Kidney Failure ?< 15 ??mL/min/1.73m2 *Relative to young adult level Estimated glomerular filtration rate is determined by the 2020 CKD-EPI equation recommended by the National Kidney Foundation (A Unifying Approach to GFR Estimation: Recommendations of the NKF-ASK Task Force on Reassessing the Inclusion of Race in Diagnosing Kidney Disease, JASN 2020). The CKD-EPI equation should not be used for patients with unstable renal function and has not been validated in children and those over 70. Current interpretive data was last reviewed 2021. Testing performed by: [address] [address] Blood 07/15/2024 2:16 PM CDT 07/15/2024 2:19 PM CDT us Sergio Bains MD LAB BLOOD ORDERABLES Final Result Performing Organization Address City/State/[facility] Co de Phone Number ROXANNA [address] [facility] Department [place] [address] * Differential, auto (07/15/2024 2:16 PM CDT) Neutrophil abs 2.5 1.5 - 6.5 K/cumm Comment:Testing performed by : [address] [address] Imm gran abs 0.0 0.0 - 0.1 K/cumm ROXANNA Comment:Testing performed by : [address] [address] Lymphocyte abs 2.2 0.8 - 3.3 K/cumm ROXANNA Comment:Testing performed by : [address] [address] Monocyte abs 0.5 0.2 - 0.8 K/cumm ROXANNA SANTOS Comment:Testing performed by : [address] [address] Eosinophil abs 0.2 0.0 - 0.5 K/cumm ROX[facility]NA Comment:Testing performed by : [address] [address] Basophil abs 0.0 0.0 - 0.1 K/cumm ROX[facility]NA Comment:Testing performed by : [address] [address] Neutrophil pct 46.5 % [facility] Comment: Interpretive Data Percent cell count reference ranges are not reported, since discordance with absolute values may lead to misinterpretation of CBC data. Current Interpretive Data was last revised on 2017. Testing performed by: [address] [address] Imm gran pct 0.2 % [facility] Comment: Interpretive Data Percent cell count reference ranges are not reported, since discordance with absolute values may lead to misinterpretation of CBC data. Current Interpretive Data was last revised on 2017. Testing performed by: [address] [address] Lymphocyte pct 40.9 % [facility] Comment: Interpretive Data Percent cell count reference ranges are not reported, since discordance with absolute values may lead to misinterpretation of CBC data. Current Interpretive Data was last revised on 2017. Testing performed by: [address] [address] Monocyte pct 8.9 % [facility] Comment: Interpretive Data Percent cell count reference ranges are not reported, since discordance with absolute values may lead to misinterpretation of CBC data. Current Interpretive Data was last revised on 2017. Testing performed by: [address] [address] Eosinophil pct 2.8 % [facility] Comment: Interpretive Data Percent cell count reference ranges are not reported, since discordance with absolute values may lead to misinterpretation of CBC data. Current Interpretive Data was last revised on 2017. Testing performed by: [address] [address] Basophil pct 0.7 % [facility] Comment: Interpretive Data Percent cell count reference ranges are not reported, since discordance with absolute values may lead to misinterpretation of CBC data. Current Interpretive Data was last revised on 2017. Testing performed by: [address] [address] Blood 07/15/2024 2:16 PM CDT 07/15/2024 2:19 PM CDT Sergio Bains MD LAB BLOOD ORDERABLES Final Result Performing Organization Address City/[facility]/ZIP Co de Phone Number [facility] [place] [address] * Chromogranin A (07/15/2024 2:16 PM CDT) Chromogranin A 36 <93 ng/mL [facility] Comment: ADDITIONAL INFORMATION The testing method is a homogeneous time-resolved immunofluorescent assay manufactured by [employer] and performed on the [employer] MDXor Compact Plus. ? Values obtained with different assay methods or kits may be different and cannot be used interchangeably. ? Test results cannot be interpreted as absolute evidence for the presence or absence of malignant disease. In some immunoassays, the presence of unusually high concentrations of analyte may result in a high-dose hook effect. This may result in a lower or even normal measured analyte concentration. If the reported result is inconsistent with the clinical presentation, the laboratory should be alerted for troubleshooting. For diagnostic purposes, these immunoassay results should always be assessed in conjunction with the patients medical history, clinical examination and other findings. Test Performed by: [place] [address] [employer] Scout: Shantanu Ureña Ph.D.; CLIA# [id number] Testing performed by: [facility], [address] [place] [address]., [address] Blood 07/15/2024 2:16 PM CDT 07/16/2024 12:52 PM CDT Sergio Bains MD LAB BLOOD ORDERABLES Final Result Performing Organization Address City/[facility]/ZIP Co de Phone Number [facility] [place] [address] [place] [facility] * CBC with auto differential (07/15/2024 2:16 PM CDT) [facility] WBC 5.4 3.8 - 9.9 K/cumm Comment:Testing performed by : [address] [address] Hgb 14.6 13.0 - 17.5 g/dL R[facility]NA Comment:Testing performed by : [address] [address] Hct 41.0 38.9 - 50.3 % [facility] Comment:Testing performed by : [address] [address] Plt 311 150 - 400 K/cumm ROX[facility]NA Comment:Testing performed by : [address] [address] MPV 9.5 9.1 - 12.3 fL [facility] Comment:Testing performed by : [address] [address] RBC 4.56 4.30 - 5.80 M/cumm ROX[facility]NA Comment:Testing performed by : [address] [address] MCV 89.9 81.3 - 96.4 fL [facility] Comment:Testing performed by : [address] [address] MCH 32.0 27.1 - 33.3 pg [facility]NA Comment:Testing performed by : [address] [address] MCHC 35.6 32.3 - 35.7 g/dL [facility] Comment:Testing performed by : [address] [address] RDW CV 13.2 11.1 - 14.9 % [facility]NA Comment:Testing performed by : [address] [address] RDW SD 43.6 35.7 - 48.1 fL [facility] Comment:Testing performed by : [address] [address] NRBC abs 0.00 0.00 - 0.01 K/cumm ROX[facility]NA Comment:Testing performed by : [address] [address] Blood 07/15/2024 2:16 PM CDT 07/15/2024 2:19 PM CDT Sergio Bains MD LAB BLOOD ORDERABLES Final Result [facility] [address] [facility] Department [place] [address] * Comprehensive metabolic panel (07/15/2024 2:16 PM CDT) Sodium 141 135 - 145 mmol/L Comment:Testing performed by : [address] [address] Potassium, pl 4.1 3.3 - 4.9 mmol/L R[facility] Comment:Testing performed by : [address] [address] Chloride 104 97 - 110 mmol/L [facility] Comment:Testing performed by : [address] [address] CO2 28 22 - 32 mmol/L [facility] Comment:Testing performed by : [address] [address] Anion gap 9 2 - 15 mmol/L [facility] Comment:Testing performed by : [address] [address] BUN 7 6 - 25 mg/dL [facility] Comment:Testing performed by : [address] [address] Creatinine 0.90 0.80 - 1.30 mg/dL [facility] Comment:Testing performed by : [address] [address] Glucose 103 70 - 199 mg/dL [facility] Comment: Interpretive Data Fasting glucose >/= 126 mg/dl is diagnostic for diabetes. ?? Fasting is defined as no caloric intake for at least 8 hours. Fasting glucose between 100 mg/dl to 125 mg/dl is diagnostic of prediabetes. In a patient with classic symptoms of hyperglycemia or hyperglycemic crisis, a random glucose >/= 200 mg/dl is diagnostic for diabetes. In the absence of unequivocal hyperglycemia, results should be confirmed by repeat testing. The classification and Diagnosis of Diabetes Diabetes Care 2021; 46: S19-S40. Current interpretive data was last revised 2022. Testing performed by: [address] [address] Calcium 9.4 8.5 - 10.3 mg/dL [facility] Comment:Testing performed by : [address] [address] Bilirubin, total 0.4 0.1 - 1.2 mg/dL [facility] Comment:Testing performed by : [address] [address] Protein, pl 7.4 6.5 - 8.5 g/dL [facility] Comment:Testing performed by : [address] [address] Albumin 4.5 3.5 - 5.0 g/dL [facility] Comment:Testing performed by : [address] [address] Alk phos 75 40 - 130 Units/L [facility] Comment:Testing performed by : [address] [address] ALT 20 7 - 55 Units/L [facility] Comment:Testing performed by : [address] [address] AST 19 10 - 50 Units/L [facility] Comment:Testing performed by : [address] [address] Blood 07/15/2024 2:16 PM CDT 07/15/2024 2:19 PM CDT us Sergio Bains MD LAB BLOOD ORDERABLES Final Result [facility]NA SANTOS [address] [facility] Department [place] [address] from Last 3 Months Insurance [facility] Care Teams Meter Record Clerk Relationship Specialty Start Date End Date Shahram Marquez MD [address] [facility] [place] [address] PCP - General Emergency Medicine 05/06/19 Sergio Bains MD [address] [facility], [address] [place] [address] Medical Oncologist/Marketing [facility] Medical Oncology 06/03/24
--- OUTSIDE RECORDS SUMMARY | 2024-10-10 15:31 | XMS_ITS | Referral Summary ---
Author Organization [facility] Address [address] [place] [address] Care Team Providers Care Hand I Blocker Name Role Phone Shahram Marquez MD Primary Care Provide r OpSergio read MD Unavailable [phone] Encounters Date Type Department Care Team Description 07/15/2024 8:22 PM CDT - 07/15/2024 11:59 PM CDT Hospital Encounter [facility] [address] [place] [id number] Discharge Disposition: Discharge to home or self care 07/15/2024 2:00 PM CDT Lab [facility] at [address] [address] Neuroendocrine carcinoma (HCC) 07/15/2024 3:00 PM CDT Office Visit [facility] Oncology [address] [place] [address] [address] [place] [id number] Sergio Bains MD Neuroendocrine carcinoma (HCC) (Primary Dx) from Last 3 Months Allergies No known active allergies Medications multivit with minerals/lute in (MULTIVITAMIN 50 PLUS ORAL) 06/20/2017Centrum, po solid .[id number] Tablet, chewablePOdailyCurrent Medication 017 Active fluticasone propionate (FLONASE) 50 mcg/actuation nasal spray 06/20/2017Flonase allergy relief, top 50 mcg [place], suspension (ml)Topicalas directedCurrent Medication Active omega-3/dha/e pa/dpa/fish oil (OMEGA-3 2100 ORAL) 06/20/2017Megared omega-3 krill oil, po solid 1000-230mg CapsulePOdailyCurrent Medication Active Lactobac no.41/Bifidob act no.7 (PROBIOTIC-10 ORAL) 06/20/2017Probiotic, po solid 5b cell Capsule, sprinklePOdailyCurrent Medication Active red yeast rice 600 mg capsule 022 Active multivitamin- iron-folic acid (Daily Vitamin Formula-Iron) 18-400 mg-mcg tablet Take 1 tablet by mouth daily Active Active Problems Problem Noted Date Diagnosed Date 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 Immunizations Name Administration Dates Next Due Influenza, Unspecified 06/20/2017,2016,09/20/2016,2015 Moderna SARS-CoV-2 Monovalen t Vaccination (12+ YRS) 10/31/2021 Tdap 08/15/2017 ZOSTER LIVE 06/20/2017, 7,09/20/2016,2015 Social History Tobacco Use Types Packs/Day Years [...] on file Legal Sex Male 11:34 AM MANAGER DECISION SUPPORT Gender Identity Male 11/04/2019 1:12 PM MANAGER DECISION SUPPORT Sexual Orientation Straight 11/04/2019 1: 12 PM MANAGER DECISION SUPPORT Last Filed Vital Signs Vital Sign Reading [...] 07/15/2024 2:38 PM CDT Plan of Treatment Not on file Procedures Procedure Name Priority Date/Time Associated Diagnosis [...] Outside Reference (07/15/2024 8:22 PM CDT) Impressions [facility] - 07/15/2024 8:22 PM CDT These images are for Reference purposes only and have not been reviewed by [facility]. ??There will be no report generated by a [facility] Radiologist. Narrative [facility] - 07/15/2024 8:22 PM CDT EXAMINATION: ??Images [...] was last reviewed 2021. Testing performed by: [address] [address] Blood 07/15/2024 2:16 PM CDT 07/15/2024 2:19 PM CDT us Sergio Bains MD LAB BLOOD ORDERABLES Final Result TAEUDV [address] [facility] [place] [address] * Differential, auto (07/15/2024 2:16 PM CDT) [facility] Neutrophil abs 2.5 1.5 - 6.5 K/cumm Comment:Testing performed by : [address] [place]., [address] Imm gran abs 0.0 0.0 - 0.1 K/cumm CERNER Comment:Testing performed by : [address] [address] Lymphocyte abs 2.2 0.8 - 3.3 K/cumm CERNER Comment:Testing performed by : [address] [address] Monocyte abs 0.5 0.2 - 0.8 K/cumm [facility] Comment:Testing performed by : [address] [address] Eosinophil abs 0.2 0.0 - 0.5 K/cumm CERNER Comment:Testing performed by : [address] [address] Basophil abs 0.0 0.0 - 0.1 K/cumm [facility] Comment:Testing performed by : [address] [address] Neutrophil pct 46.5 % [facility] Comment: Interpretive Data Percent cell count reference ranges are not reported, since discordance with absolute values may lead to misinterpretation of CBC data. Current Interpretive Data was last revised on 2017. Testing performed by: [address] [address] Imm gran pct 0.2 % CERNER Comment: Interpretive Data Percent cell count reference ranges are not reported, since discordance with absolute values may lead to misinterpretation of CBC data. Current Interpretive Data was last revised on 2017. Testing performed by: [address] [address] Lymphocyte pct 40.9 % CERNER Comment: Interpretive Data Percent cell count reference ranges are not reported, since discordance with absolute values may lead to misinterpretation of CBC data. Current Interpretive Data was last revised on 2017. Testing performed by: [address] [address] Monocyte pct 8.9 % CERNER Comment: Interpretive Data Percent cell count reference ranges are not reported, since discordance with absolute values may lead to misinterpretation of CBC data. Current Interpretive Data was last revised on 2017. Testing performed by: [address] [address] Eosinophil pct 2.8 % [facility] Comment: Interpretive Data Percent cell count reference ranges are not reported, since discordance with absolute values may lead to misinterpretation of CBC data. Current Interpretive Data was last revised on 2017. Testing performed by: [address] [address] Basophil pct 0.7 % [facility] Comment: Interpretive Data Percent cell count reference ranges are not reported, since discordance with absolute values may lead to misinterpretation of CBC data. Current Interpretive Data was last revised on 2017. Testing performed by: [address] [address] Blood 07/15/2024 2:16 PM CDT 07/15/2024 2:19 PM CDT Sergio Bains MD LAB BLOOD ORDERABLES Final Result ROXANNA [address] [facility] [place] [address] * Chromogranin A (07/15/2024 2:16 PM CDT) Chromogranin A 36 <93 ng/mL [facility] Comment: ADDITIONAL INFORMATION The testing method is a homogeneous time-resolved immunofluorescent assay manufactured by [employer] and performed on the [employer] Kryptor Compact Plus. ? Values obtained with different [...] examination and other findings. Test Performed by: [facility] [address] [place] [address] Oil Refinery Operator: Shantanu Ureña Ph.D.; CLIA# [id number] Testing performed by: [address] [address] Blood 07/15/2024 2:16 PM CDT 07/16/2024 12:52 PM CDT Sergio Bains MD LAB BLOOD ORDERABLES Final Result ROXANNA [address] [facility] Department [place] [address] [facility] * CBC with auto differential (07/15/2024 2:16 PM CDT) WBC 5.4 3.8 - 9.9 K/cumm Comment:Testing performed by : [address] [address] Hgb 14.6 13.0 - 17.5 g/dL ROXANNA SANTOS Comment:Testing performed by : [address] [address] Hct 41.0 38.9 - 50.3 % ROX[facility]NA SANTOS Comment:Testing performed by : [address] [address] Plt 311 150 - 400 K/cumm ROXANNA SANTOS Comment:Testing performed by : [address] [address] MPV 9.5 9.1 - 12.3 fL [facility]NA SANTOS Comment:Testing performed by : [address] [address] RBC 4.56 4.30 - 5.80 M/cumm ROX[facility]NA SANTOS Comment:Testing performed by : [address] [address] MCV 89.9 81.3 - 96.4 fL ROX[facility]NA SANTOS Comment:Testing performed by : [address] [address] MCH 32.0 27.1 - 33.3 pg ROX[facility]NA SANTOS Comment:Testing performed by : [address] [address] MCHC 35.6 32.3 - 35.7 g/dL ROXANNA SANTOS Comment:Testing performed by : [address] [address] RDW CV 13.2 11.1 - 14.9 % ROXANNA SANTOS Comment:Testing performed by : [address], [place]., [address] RDW SD 43.6 35.7 - 48.1 fL ROXANNA SANTOS Comment:Testing performed by : [address] [address] NRBC abs 0.00 0.00 - 0.01 K/cumm ROXANNA SANTOS Comment:Testing performed by : [address] [address] Blood 07/15/2024 2:16 PM CDT 07/15/2024 2:19 PM CDT us Sergio Bains MD LAB BLOOD ORDERABLES Final Result ROX[facility]NA [address] [facility] Department of Laboratories [place], [place] [id number] * Comprehensive metabolic panel (07/15/2024 2:16 PM CDT) Sodium 141 135 - 145 mmol/L Comment:Testing performed by : [address] [address] Potassium, pl 4.1 3.3 - 4.9 mmol/L ROXANNA SANTOS Comment:Testing performed by : [address] [address] Chloride 104 97 - 110 mmol/L ROXANNA SANTOS Comment:Testing performed by : [address] [address] CO2 28 22 - 32 mmol/L ROX[facility]NA SANTOS Comment:Testing performed by : [address] [address] Anion gap 9 2 - 15 mmol/L R[facility]NA Comment:Testing performed by : [address] [address] BUN 7 6 - 25 mg/dL R[facility]NA Comment:Testing performed by : [address] [address] Creatinine 0.90 0.80 - 1.30 mg/dL ROX[facility]NA Comment:Testing performed by : [address] [address] Glucose 103 70 - 199 mg/dL [facility] Comment: Interpretive Data Fasting glucose >/= 126 [...] was last revised 2022. Testing performed by: [address] [address] Calcium 9.4 8.5 - 10.3 mg/dL ROXANNA Comment:Testing performed by : [address] [address] Bilirubin, total 0.4 0.1 - 1.2 mg/dL ORXANNA Comment:Testing performed by : [address] [address] Protein, pl 7.4 6.5 - 8.5 g/dL ROXANNA Comment:Testing performed by : [address] [address] Albumin 4.5 3.5 - 5.0 g/dL ROX[facility]NA Comment:Testing performed by : [address] [address] Alk phos 75 40 - 130 Units/L ROX[facility]NA Comment:Testing performed by : [address] [address] ALT 20 7 - 55 Units/L CERKRISTEN SANTOS Comment:Testing performed by : [facility], [address] [place] [address]., [address] AST 19 10 - 50 Units/L ROXANNA SANTOS Comment:Testing performed by : [facility], [address] [place] [address]., [address] Blood 07/15/2024 2:16 PM CDT 07/15/2024 2:19 PM CDT Sergio Bains MD LAB BLOOD ORDERABLES Final Result ROXANNA SANTOS [address] [facility] Department [place] [address] from Last 3 Months Insurance [address] [address] CLAIMS Care Teams Hand I Blocker Relationship Specialty Start Date End Date Shahram Marquez MD [address] [facility] [place] [place] [address] PCP - General Emergency Medicine 05/06/19 Sergio Bains MD [address] [facility] DIV IM MEDICAL ONCOLOGY, [address] [place] [address] Medical Oncologist/Clay Digger Medical Oncology 06/03/24
== END 2024-10-08 07:09 | disposition home or self-care (01) ==
PROVIDERS: PCP Emergency Medicine; Visit Provider Emergency Medicine
DX: E78.5 Hyperlipidemia, unspecified (principal); E55.9 Vitamin D deficiency, unspecified
CPT/HCPCS: 36415; 80053; 80061; 82306

== ENCOUNTER 2025-01-09 06:38 | Outpatient (CLI) | payer OTHER, SELFPAY ==
--- OUTSIDE RECORDS SUMMARY | 2025-01-09 06:42 | XMS_ITS | Clinical Summary ---
Author Organization [facility] Address [address] [place] [address] Care Team Providers Care Corporate Sales Trainer Name Role Phone Shahram Marquez MD Primary Care Provide r OppeltSergio MD Unavailable [phone] Allergies No known active allergies Medications multivit with minerals/lute in (MULTIVITAMIN 50 PLUS ORAL) 06/20/2017Centrum, po solid .4-18-3500 Tablet, chewablePOdailyCurrent Medication 017 Active fluticasone propionate (FLONASE) 50 mcg/actuation nasal spray 06/20/2017Flonase allergy relief, top 50 mcg [place], suspension (ml)Topicalas directedCurrent Medication 017 Active omega-3/dha/e [...] Date Diagnosed Date 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 Immunizations Immunization Administration Dates Next Due Influenza, Unspecified 06/20/2017,2016,09/20/2016,2015 [...] on file 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 Gender Identity Male 11/04/2019 1:12 PM 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 HELPER Sexual Orientation Straight 11/04/2019 1: 12 PM 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 HELPER Obstetrics History Last Filed Vital Signs Vital Sign Reading Time Taken Comments Blood Pressure 170/85 07/15/2024 2:38 PM CDT Pulse 70 07/15/2024 2:38 PM CDT Temperature 36.8 C (98.3 F) 07/15/2024 2:38 PM CDT Respiratory Rate 16 07/15/2024 2:38 PM CDT [...] season) 2024 10/31/2021, 05/31/2021, 05/03/2021 Influenza Vaccine (Season Ended) 2025 06/20/2017, 12/13/2016, 09/20/2016, Additional history exists DTaP/Tdap/Td Vaccine (2 - Td or Tdap) 08/15/2027 08/15/2017 Pneumococcal vaccine <65 Aged Out No longer eligible based on patient's age to complete this topic Insurance CLAIMS [facility] CLAIMS Care Teams Corporate Sales Trainer Relationship Specialty Start Date End Date Shahram Marquez MD [address] [place] [address] PCP - General Emergency Medicine 05/06/19 Sergio Bains MD [address] [facility] DIV IM MEDICAL ONCOLOGY, [address] [place] [address] Medical Oncologist/Shipyard Painter Helper Medical Oncology 06/03/24
--- OUTSIDE RECORDS SUMMARY | 2025-01-09 06:42 | XMS_ITS | Referral Summary ---
Author Organization [facility] Address [address] [place] [address] Care Team Providers Care Jerker Name Role Phone Shahram Marquez MD Primary Care Provide r OppeltSergio MD Unavailable [phone] Allergies No known active allergies Medications multivit with minerals/lute in (MULTIVITAMIN 50 PLUS ORAL) 06/20/2017Centrum, po solid .4-18-3500 Tablet, chewablePOdailyCurrent Medication 017 Active fluticasone propionate (FLONASE) 50 mcg/actuation nasal spray 06/20/2017Flonase allergy relief, top 50 mcg [place], suspension (ml)Topicalas directedCurrent Medication 017 Active omega-3/dha/e [...] on file Legal Sex Male 11:34 AM 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 Gender Identity Male 11/04/2019 1:12 PM 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 MEDICAL ONCOLOGY, [address] [place] [address] Medical Oncologist/Reproduction Specialist Medical Oncology 06/03/24
[2025-01-09 07:54] LABS: Alanine Aminotransferase 33 U/L (6-50); Albumin Level 4.4 g/dL (3.5-5.1); Alkaline Phosphatase 64 U/L (38-126); Anion Gap 7 mmol/L (4-12); Aspartate Amino Transferase 29 U/L (17-59); Bilirubin,Total 0.8 mg/dL (0.2-1.3); Blood Urea Nitrogen 13 mg/dL (9-20); Calcium 9.1 mg/dL (8.4-10.2); Carbon Dioxide 30 mmol/L (22-30); Chloride 103 mmol/L (98-107); Cholesterol 209 mg/dL (0-200); Estimated Glomerular Filt Rate > 60; Glucose 102 mg/dL (65-110); HDL Direct 46 mg/dL; Potassium 3.8 mmol/L (3.4-5.0); Sodium 140 mmol/L (137-145); Triglycerides 173 mg/dL (<150)
[2025-01-09 08:06] LABS: LDL Cholesterol Direct 121 mg/dL
[2025-01-09 08:24] LABS: Prostate Specific Antigen 0.8 ng/mL (< OR = 4.0)
[2025-01-09 09:43] LABS: Vitamin D 25 Hydroxy 37.4 ng/mL
== END 2025-01-09 06:39 | disposition home or self-care (01) ==
LOC: ANHLAB 06:39
PROVIDERS: PCP Emergency Medicine; Visit Provider Emergency Medicine
DX: Z12.5 Encounter for screening for malignant neoplasm of prostate (principal); E78.5 Hyperlipidemia, unspecified; E55.9 Vitamin D deficiency, unspecified
CPT/HCPCS: 36415; 80053; 80061; 82306; 84153; G0103